=== PATIENT | female | born 1945 | race Caucasian/White ===

== ENCOUNTER 2020-11-26 12:59 | Inpatient (IN) | payer BC, SELFPAY ==
[~2020-11-26] VITALS: Ht 157.5 cm; Wt 62.6 kg
[~2020-11-26 12:59] MED LIST: ALBU8.5H8 INH; AMLO2.5T2 PO; ASPI-1393 PO; ASPI-859 PO; ESCI10TA PO; FLUT1DIS3 IH; FLUT1DIS5 INH; PRED10TA PO; TIOT18CA3; cefdinir PO; proair
--- NOTE | 2020-11-26 12:59 | NUR ---
Placed in room 7. Placed on cardiac cath technician, blood pressure machine and pulse oximeter. To gown for exam. Side rails up. Report given to AMANDA Pang.
[2020-11-26 13:02] VITALS: BP_SYST 153
--- NOTE | 2020-11-26 13:09 | NUR ---
ER Dr. Patrick at bedside examining patient.
--- NOTE | 2020-11-26 13:17 | NUR ---
Faxing over EKG to [facility] per Dr. Patrick EKG reading Acute KS
--- NOTE | 2020-11-26 13:22 | NUR ---
Re-faxing EKG to [facility] did not go through 1st time
--- NOTE | 2020-11-26 13:27 | NUR ---
Dr. Patrick speaking to [facility] Doc regarding pt status.
[2020-11-26] MEDS ORDERED: ASPIRIN 81 MG TAB.CHEW PO ONE (13:45)
[2020-11-26 13:55] LABS: ANION GAP 8 (5-15); CALCIUM 9.3 mg/dL (8.4-11.0); CHLORIDE 105 mmol/L (98-107); CREATININE 0.67 mg/dL (0.55-1.30); GLUCOSE 106 mg/dL (70-99); POTASSIUM 4.2 mmol/L (3.5-5.1); SODIUM SERUM 142 mmol/L (136-145); UREA NITROGEN, BLOOD 10 mg/dL (8-21)
[2020-11-26 14:00] LABS: BASOPHILS % (AUTO) 0.8 % (0.0-2.0); EOSINOPHILS # (AUTO) 0.1 K/uL (0.0-0.4); EOSINOPHILS % (AUTO) 0.9 % (0.0-4.0); HEMATOCRIT 40.2 % (36-48); HEMOGLOBIN 13.2 g/dL (12.0-16.0); LYMPHOCYTES # (AUTO) 1.3 K/uL (1.0-5.5); LYMPHOCYTES % (AUTO) 24.1 % (20.5-51.5); MEAN CORPUSCULAR HEMOGLOBIN 27 pg (27-31); MEAN CORPUSCULAR HGB CONC 33 % (32-36); MEAN CORPUSCULAR VOLUME 83 fL (79.0-98.0); MONOCYTES # (AUTO) 0.7 K/uL (0.0-1.0); MONOCYTES % (AUTO) 12.5 % (1.7-9.3); NEUTROPHILS # (AUTO) 3.3 K/uL (1.8-7.7); NEUTROPHILS % (AUTO) 61.7 % (40.0-70.0); PLATELET COUNT (AUTO) 259 K/uL (130-430); RED BLOOD CELL COUNT(AUTO) 4.87 MIL/uL (4.2-6.2); RED CELL DISTRIBUTION WIDTH 14.2 % (9.0-15.0); WHITE BLOOD COUNT (AUTO) 5.4 K/uL (4.8-10.8)
[2020-11-26] MEDS ORDERED: KETOROLAC TROMETHAMINE 15 MG VIAL IVP ONE (14:00)
[2020-11-26 14:03] LABS: PROTHROMBIN TIME 10.1 SECS (9.5-12.5)
[2020-11-26 14:04] LABS: ALANINE AMINOTRANSFERASE 21 U/L (12-78); ALBUMIN 3.2 g/dL (3.4-4.8); ASPARTATE AMINOTRANSFERASE 19 U/L (10-37); TOTAL BILIRUBIN 0.2 mg/dL (0.0-1.0)
--- NOTE | 2020-11-26 14:48 | NUR ---
Report received from AMANDA Pang for continuation of care.
[2020-11-26] MEDS ORDERED: DIPHENHYDRAMINE INJ 50 MG/ML VIAL IVP ONE (15:00)
[2020-11-26] MEDS ORDERED: MORPHINE 4 MG INJ. 4 MG/ML VIAL IVP ONE (15:00)
--- NOTE | 2020-11-26 15:00 | NUR ---
Medication reconciliation completed with information provided by patient. Any prior medication reconciliation on file was reviewed and corrected.
--- NOTE | 2020-11-26 15:12 | NUR ---
ADMISSION ORDERS RECEIVED FROM DR. CARR
--- NOTE | 2020-11-26 15:13 | NUR ---
Patient will be admitted to care of Dr. Sheridan. Admitted to Telemetry unit. Waiting for room assignment. Belongings list completed. Complete and up to date summary report printed. SBAR report to be given at bedside with opportunity for questions.
--- NOTE | 2020-11-26 15:14 | NUR ---
Called for bed assignment, rim buster not available at this time.
[2020-11-26] MEDS ORDERED: methylPREDNISolone SOD SUCC 40 MG/ML VIAL IVP ONE (15:15)
--- NOTE | 2020-11-26 15:16 | NUR ---
Patient states she can not give urine sample at this time.
[2020-11-26] MEDS ORDERED: methylPREDNISolone SOD SUCC 40 MG/ML VIAL ONE (15:26)
[2020-11-26] MEDS ORDERED: ACETAMINOPHEN 325 MG TABLET PO PRN (15:30)
[2020-11-26] MEDS ORDERED: cloNIDine HCL 0.1 MG TABLET PO PRN (15:30)
[2020-11-26] MEDS ORDERED: FAMOTIDINE 20 MG TABLET PO ONE (15:30)
[2020-11-26] MEDS ORDERED: IPRATROPIUM/ALBUTEROL SULFATE 3 ML AMPUL.NEB (DUONEB) INH PRN (15:30)
--- NOTE | 2020-11-26 16:02 | NUR ---
Transfer to [facility] via [facility] protocol. Licensed nurse present. IV present no signs or symptoms of infiltration.
[2020-11-26 16:24] VITALS: BP_SYST 146
[2020-11-26 16:25] VITALS: BP_SYST 146
[2020-11-26] MEDS: IPRATROPIUM/ALBUTEROL SULFATE 3 ML AMPUL.NEB (DUONEB) INH SCH ×2 (17:58→18:01)
--- NOTE | 2020-11-26 18:31 | NUR ---
Closing note Patient is resting in bed A&Ox4 no complaint of pain or discomfort, no signs or symptoms of respiratory distress. All needs were met, patient is comfortable. Bed is in lowest position, call light within, fall and aspiration precautions are in place. Will endorse report to night shift manager.
--- NOTE | 2020-11-26 19:25 | NUR ---
CHANGE OF SHIFT; endorsed by day shift. new admit for chest pain , DX COPD Exacerbation. no distress. call light within reach.
[2020-11-26 20:00] VITALS: BP_SYST 134
--- NOTE | 2020-11-26 20:00 | NUR ---
NOTES: pt. awake, resting. on room air, denies any shortness of breath, with non productive cough, HOB elevated. 2 IV sites and lock on both arms. on court recording monitor and shows paced and sinus rhythm. noted some bruising on left arm. instructed to use call light when getting out of bed, walker at bedside.
[2020-11-26] MEDS ORDERED: MAGNESIUM SULFATE 50 ML IV ONE (21:30)
[2020-11-26] MEDS ORDERED: ENOXAPARIN SODIUM 40 MG/0.4 ML SYRINGE SUBCUT ONE (21:30)
[2020-11-26] MEDS ORDERED: MELATONIN 3 MG TABLET PO PRN (21:30)
[2020-11-26] MEDS ORDERED: IBUPROFEN 400 MG TABLET PO PRN (21:30)
--- NOTE | 2020-11-26 22:52 | NUR ---
NOTES: medicated with Motrin po for c/o rt. side rib cage due to coughing. pt. able to turn to sides. pt. needs attended.
[2020-11-26] MEDS: methylPREDNISolone SOD SUCC/PF 62.5 MG/ML VIAL IVP SCH ×2 (23:15→23:46)
--- NOTE | 2020-11-27 00:15 | NUR ---
NOTES: noted relief of pain. IV Magnesium infusing.
[2020-11-27 00:34] VITALS: BP_SYST 155
[2020-11-27] MEDS: IPRATROPIUM/ALBUTEROL SULFATE 3 ML AMPUL.NEB (DUONEB) INH SCH ×4 (01:00→19:10)
--- NOTE | 2020-11-27 03:30 | NUR ---
NOTES: condition observed, continue to monitor.
--- NOTE | 2020-11-27 05:00 | NUR ---
NOTES: pt. woke up and stand by assist, ambulated to the restroom with walker. pt. asked for breathing treatment. called RT.
[2020-11-27] MEDS: methylPREDNISolone SOD SUCC/PF 62.5 MG/ML VIAL IVP SCH ×3 (06:00→22:33)
[2020-11-27 06:29] LABS: BASOPHILS % (AUTO) 0.2 % (0.0-2.0); HEMATOCRIT 42.5 % (36-48); HEMOGLOBIN 14.2 g/dL (12.0-16.0); LYMPHOCYTES # (AUTO) 0.6 K/uL (1.0-5.5); LYMPHOCYTES % (AUTO) 14.4 % (20.5-51.5); MEAN CORPUSCULAR HEMOGLOBIN 28 pg (27-31); MEAN CORPUSCULAR HGB CONC 33 % (32-36); MEAN CORPUSCULAR VOLUME 83 fL (79.0-98.0); MONOCYTES % (AUTO) 1.1 % (1.7-9.3); NEUTROPHILS # (AUTO) 3.4 K/uL (1.8-7.7); NEUTROPHILS % (AUTO) 84.3 % (40.0-70.0); PLATELET COUNT (AUTO) 277 K/uL (130-430); RED BLOOD CELL COUNT(AUTO) 5.12 MIL/uL (4.2-6.2); RED CELL DISTRIBUTION WIDTH 14.3 % (9.0-15.0)
--- NOTE | 2020-11-27 06:41 | NUR ---
CLOSING NOTES; pt. already awake, resting, had a cup of coffee. IV sites patent. breathing treatment by RT earlier. needs attended. for further care and assistance. will endorse to incoming shift. call light within reach.
[2020-11-27 06:50] LABS: ALANINE AMINOTRANSFERASE 19 U/L (12-78); ALBUMIN 3.4 g/dL (3.4-4.8); ANION GAP 8 (5-15); ASPARTATE AMINOTRANSFERASE 20 U/L (10-37); CALCIUM 9.2 mg/dL (8.4-11.0); CHLORIDE 104 mmol/L (98-107); CREATININE 0.84 mg/dL (0.55-1.30); GLUCOSE 154 mg/dL (70-99); POTASSIUM 4.7 mmol/L (3.5-5.1); SODIUM SERUM 141 mmol/L (136-145); TOTAL BILIRUBIN 0.2 mg/dL (0.0-1.0); UREA NITROGEN, BLOOD 14 mg/dL (8-21)
--- NOTE | 2020-11-27 07:30 | NUR ---
OPENING NOTES PATIENT AAOX 4. VITALS SIGNS STABLE. AFEBRILE. RESPIRATION EVEN AND UNLABORED. LUNGS BILATERALLY WITH SLIGHT WHEEZES. NOTED. HAS IV ACCESS ON THE LEFT FOREARM #18. SALINE LOCK AND ONE ON THE RT FOREARM #20 SALINE LOCK NOTED. PATENT/DRY. BED LOW POSITION, ALARMED AND LOCKED. CALL LIGHTS WITHIN REACH. WILL CONTINUE TO MONITOR PATIENTS STATUS.
[2020-11-27 07:45] VITALS: BP_SYST 125
[2020-11-27] MEDS: FAMOTIDINE 20 MG TABLET PO SCH (08:42)
[2020-11-27] MEDS: CITALOPRAM HYDROBROMIDE 20 MG TABLET PO SCH (08:42)
[2020-11-27] MEDS: ASPIRIN 81 MG TABLET(ECOTRIN) PO SCH (08:42)
[2020-11-27] MEDS: amLODIPine BESYLATE 5 MG TABLET PO SCH (08:43)
--- NOTE | 2020-11-27 09:00 | NUR ---
PATIENT CAME FROM ER VIA [employer] ALERT AWAKE X 3-4. SPEAKS WELSH. SISTER AT THE BEDSIDE. RESPIRATION IS EVEN BUT DYSPNEA ON EXERTION. VITALS SIGNS STABLE. AFEBRILE AND DOCUMENTED. HAS OXYGEN OF 10 LITERS VIA VENTI MASK OR FACE MASK. O2 SAT AT 98%. HAS IV ACCESS ON THE RT FOREARM #20. SALINE LOCK. BED LOW POSITION, ALARMED AND LOCKED. NO SKIN BREAKDOWN NOTED. Addendum: 11/27/20 at 1214 by Cristina Chan RN NOT FOR THIS PATIENT.
--- NOTE | 2020-11-27 09:30 | NUR ---
ADMISSION ASSESSMENT DONE AT THIS TIME. CONTINUE TO MONITOR PATIENTS STATUS. Addendum: 11/27/20 at 1214 by Cristina Chan RN NOT FOR THIS PATIENT.
[2020-11-27 11:39] VITALS: BP_SYST 135
[2020-11-27] MEDS ORDERED: DEXTROSE 50%-WATER 50 ML DISP.SYRIN IVP PRN (12:15)
[2020-11-27] MEDS ORDERED: GLUCOSE (DEXTROSE) ORAL GEL -Adults PO PRN (12:15)
[2020-11-27] MEDS ORDERED: D5W 1,000 ML IV PRN (12:15)
--- NOTE | 2020-11-27 12:15 | NUR ---
DR CARR CAME AND EVALAUTE THE PATIENT. MADE ORDERS.
[2020-11-27] MEDS ORDERED: BUDESONIDE 0.5 MG/2 ML AMPUL.NEB INH ONE (13:00)
[2020-11-27] MEDS: BENZONATATE 100 MG CAPSULE (TESSALON) PO SCH ×3 (14:56→22:31)
[2020-11-27] MEDS: cefTRIAXone 1 GM in D5W 50 ML IV SCH (14:56)
[2020-11-27] MEDS: AZITHROMYCIN 500 MG in NS 250 ML IV SCH (14:56)
[2020-11-27] MEDS: traMADol HCL HCL 50 MG TABLET (ULTRAM) PO PRN (14:58)
[2020-11-27 15:28] VITALS: BP_SYST 118
[2020-11-27] MEDS: INSULIN LISPRO SLIDING SCALE 100 UNITS/ML VIAL (humaLOG) SUBCUT PRN (17:02)
--- NOTE | 2020-11-27 17:20 | NUR ---
P.T. NOTES P.T. EVAL COMPLETED; REFER TO EVAL FOR DETAILS; O2 SAT ROOM AIR W/ EXERTION=91%
--- NOTE | 2020-11-27 19:35 | NUR ---
initial notes: pt is in bed, alert, awake, oriented x 4. complain of mild right rib pain, no sob, not distress, room air. vital sign stable. ambulatory with steady gait using ffw. explain plan of care and safety. pt verbalized understanding.needs attended, call light in reach, low bed position, side rails up x 2. will monitor.
[2020-11-27] MEDS: BUDESONIDE 0.5 MG/2 ML AMPUL.NEB INH SCH (20:00)
[2020-11-27 20:42] VITALS: BP_SYST 119
--- NOTE | 2020-11-28 | NUR ---
sleeping, comfortable. no sob, not distress, stable vital sign. call light with the pt. safety precaution place. will monitor.
[2020-11-28 01:44] VITALS: BP_SYST 154
[2020-11-28] MEDS: IPRATROPIUM/ALBUTEROL SULFATE 3 ML AMPUL.NEB (DUONEB) INH SCH ×3 (01:46→13:47)
--- NOTE | 2020-11-28 03:30 | NUR ---
sleeping, no sob, not distress, no pain, stable, call light with the . will continue to monitor.
[2020-11-28] MEDS: methylPREDNISolone SOD SUCC/PF 62.5 MG/ML VIAL IVP SCH ×3 (06:00→21:30)
--- NOTE | 2020-11-28 06:28 | NUR ---
closing: pt is awake, alert. no pain, not distress, stable the whole shift. ambulatory using fww, needs attended the whole shift, call light with the pt. will give sbar reporting to am rn.
[2020-11-28 07:20] LABS: HEMATOCRIT 39.2 % (36-48); LYMPHOCYTES # (AUTO) 0.5 K/uL (1.0-5.5); LYMPHOCYTES % (AUTO) 5.1 % (20.5-51.5); MEAN CORPUSCULAR HEMOGLOBIN 28 pg (27-31); MEAN CORPUSCULAR HGB CONC 33 % (32-36); MEAN CORPUSCULAR VOLUME 83 fL (79.0-98.0); MONOCYTES # (AUTO) 0.3 K/uL (0.0-1.0); MONOCYTES % (AUTO) 2.8 % (1.7-9.3); NEUTROPHILS # (AUTO) 9.6 K/uL (1.8-7.7); NEUTROPHILS % (AUTO) 92.1 % (40.0-70.0); PLATELET COUNT (AUTO) 255 K/uL (130-430); RED BLOOD CELL COUNT(AUTO) 4.74 MIL/uL (4.2-6.2); RED CELL DISTRIBUTION WIDTH 14.2 % (9.0-15.0); WHITE BLOOD COUNT (AUTO) 10.4 K/uL (4.8-10.8)
[2020-11-28 07:30] LABS: ANION GAP 7 (5-15); CALCIUM 8.7 mg/dL (8.4-11.0); CHLORIDE 105 mmol/L (98-107); CREATININE 0.61 mg/dL (0.55-1.30); GLUCOSE 155 mg/dL (70-99); POTASSIUM 4.4 mmol/L (3.5-5.1); SODIUM SERUM 142 mmol/L (136-145); UREA NITROGEN, BLOOD 16 mg/dL (8-21)
--- NOTE | 2020-11-28 07:45 | NUR ---
Opening Notes Patient is awake, alert and oriented x4. No resp distress noted. Breathing is even and unlabored. Pt reports productive cough, phlegm is white in color, thick. Breathing treatments as needed. Pt denies any pain at this time. IV site on left FA, 18 gauge intact at this time, saline lock. Dressing clean and dry. Pt is ambulatory, steady gait. Pt denies any SOB during ambulation. 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 Pt denies any NVD or abnormal bleeding at this time. All needs met. Safety and fall precautions in place. Bed in lowest position, locked. Will continue to monitor.
[2020-11-28 08:00] VITALS: BP_SYST 140
[2020-11-28] MEDS: CITALOPRAM HYDROBROMIDE 20 MG TABLET PO SCH (08:36)
[2020-11-28] MEDS: BENZONATATE 100 MG CAPSULE (TESSALON) PO SCH ×3 (08:36→21:30)
[2020-11-28] MEDS: ASPIRIN 81 MG TABLET(ECOTRIN) PO SCH (08:36)
[2020-11-28] MEDS: FAMOTIDINE 20 MG TABLET PO SCH (08:37)
[2020-11-28] MEDS: amLODIPine BESYLATE 5 MG TABLET PO SCH (08:37)
[2020-11-28] MEDS: BUDESONIDE 0.5 MG/2 ML AMPUL.NEB INH SCH ×2 (09:00→20:39)
--- NOTE | 2020-11-28 10:31 | NUR ---
Patient is being seen and examined by DR CARR
[2020-11-28] MEDS: traMADol HCL HCL 50 MG TABLET (ULTRAM) PO PRN ×2 (10:44→23:58)
[2020-11-28] MEDS: INSULIN LISPRO SLIDING SCALE 100 UNITS/ML VIAL (humaLOG) SUBCUT PRN (11:21)
[2020-11-28 11:40] VITALS: BP_SYST 124
[2020-11-28] MEDS ORDERED: IBUPROFEN 400 MG TABLET PO PRN (12:00)
[2020-11-28] MEDS: cefTRIAXone 1 GM in D5W 50 ML IV SCH (12:09)
[2020-11-28] MEDS: AZITHROMYCIN 500 MG in NS 250 ML IV SCH (13:39)
--- NOTE | 2020-11-28 15:13 | NUR ---
Patient is being seen and examined by DR PRINCE
[2020-11-28] MEDS ORDERED: LIDOCAINE PATCH 5% 1 EA TP ONE (15:15)
[2020-11-28 15:50] VITALS: BP_SYST 135
--- NOTE | 2020-11-28 16:00 | NUR ---
12 lead EKG by bedside. SINUS RHYTHM noted. Faxed results to Dr. Sheridan's office.
--- NOTE | 2020-11-28 16:26 | NUR ---
CONSULTATION: REASON FOR CONSULT: NEW ONSET OF ATRIAL FIBRILLATION CONSULTING PHYSICIAN: YVONNE ORDERED BY: BRUNO SPOKE WITH LIZA [phone]
--- NOTE | 2020-11-28 16:40 | NUR ---
Nurse applied Lidocaine Patch 5% to patients right side of abdomen lateral region, tolerating well. Pt was instructed that patch will be removed after 8 hours of application. Pt aware and agreed. Will endorse to next nurse.
--- NOTE | 2020-11-28 18:44 | NUR ---
Closing Notes Patient is awake, alert and oriented x4. No resp distress noted. Breathing is even and unlabored at this time. Pt is still noted with a cough. Pt reports relief of pain on right side of abdomen laterally, where lidocaine patch is applied. Pt denies any pain at this time. IV site on left FA, 18 gauge intact at this time. Pt is ambulatory, steady gait. All needs met at this time. Safety and fall precautions in place. Bed in lowest position, alarm on, locked. Will continue to monitor.
--- NOTE | 2020-11-28 19:25 | NUR ---
initial notes: pt is in bed, alert, awake, oriented x 4. no pain, no sob, not distress, room air. vital sign stable. ambulatory with steady gait using ffw. explain plan of care and safety. pt verbalized understanding.needs attended, call light in reach, low bed position, side rails up x 2. will monitor.
[2020-11-28 19:57] VITALS: BP_SYST 128
--- NOTE | 2020-11-28 20:30 | NUR ---
pt came out form room, sob and wheezing. ask for breathing treatment. back to bed, steady gait. o2 sating 92% at room air. RT came in and administer btx. stable. call light with the pt.
[2020-11-28] MEDS: IPRATROPIUM BROM 0.5 MG/2.5 ML VIAL.NEB (ATROVENT) INH PRN (20:35)
[2020-11-28] MEDS: levalbuterol HCL 0.63 MG/3 ML VIAL.NEB INH PRN (20:36)
[2020-11-28] MEDS: BACLOFEN 10 MG TABLET PO SCH (21:00)
[2020-11-28] MEDS: ACETAMINOPHEN 500 MG TABLET PO SCH (21:30)
--- NOTE | 2020-11-29 | NUR ---
pt wakes up and ask for pain medication for moderate right rib pain, stable no distress. needs attended call light in reach. will monitor.
[2020-11-29 00:19] VITALS: BP_SYST 124
--- NOTE | 2020-11-29 03:00 | NUR ---
pt is awake, alert, watching tv. no pain, stable, urostomy bag- drain.needs attended. call light in reach. Addendum: 11/29/20 at 0631 by Brennen Pablo RN disregard wrong entry.
--- NOTE | 2020-11-29 03:00 | NUR ---
sleeping, no sob, not distress, no pain, stable, call light with the pt.
[2020-11-29] MEDS: methylPREDNISolone SOD SUCC/PF 62.5 MG/ML VIAL IVP SCH ×2 (06:19→13:43)
--- NOTE | 2020-11-29 06:31 | NUR ---
closing: pt is awake, alert. watching tv and drinking her coffee. no pain, not distress, stable the whole shift. ambulatory using fww, needs attended the whole shift, call light with the pt. will give sbar reporting to am rn.
[2020-11-29 06:53] LABS: ANION GAP 10 (5-15); CALCIUM 8.4 mg/dL (8.4-11.0); CHLORIDE 102 mmol/L (98-107); CREATININE 0.66 mg/dL (0.55-1.30); GLUCOSE 154 mg/dL (70-99); SODIUM SERUM 140 mmol/L (136-145); UREA NITROGEN, BLOOD 15 mg/dL (8-21)
[2020-11-29] MEDS: FAMOTIDINE 20 MG TABLET PO SCH (07:59)
[2020-11-29] MEDS: CITALOPRAM HYDROBROMIDE 20 MG TABLET PO SCH (07:59)
[2020-11-29] MEDS: ACETAMINOPHEN 500 MG TABLET PO SCH ×2 (07:59→20:41)
[2020-11-29] MEDS: ASPIRIN 81 MG TABLET(ECOTRIN) PO SCH (07:59)
[2020-11-29 08:00] VITALS: BP_SYST 138
[2020-11-29] MEDS: amLODIPine BESYLATE 5 MG TABLET PO SCH (08:00)
[2020-11-29] MEDS: LIDOCAINE PATCH 5% 1 EA TP SCH (08:00)
--- NOTE | 2020-11-29 08:00 | NUR ---
A/Ox4. Pt is anxious. On room air, saturation at 92-95%. Reassurance and explanation of POC and meds are provided. V/S stable. All needs met at this time. Safety and fall precautions in place. Bed in lowest position, alarm on, locked. Will continue to monitor.
[2020-11-29] MEDS: BUDESONIDE 0.5 MG/2 ML AMPUL.NEB INH SCH ×2 (08:24→20:00)
[2020-11-29] MEDS: BACLOFEN 10 MG TABLET PO SCH ×2 (09:00→20:39)
[2020-11-29] MEDS: BENZONATATE 100 MG CAPSULE (TESSALON) PO SCH ×3 (09:00→20:39)
--- NOTE | 2020-11-29 10:21 | NUR ---
PATIENT REFUSED P.T. AT THIS TIME, STATES BEEN HAVING A BAD MORNING AND HAS BEEN VOMITING, ASKED IF SHE NEEDED ME TO INFORM NURSING, STATES THAT THEY ARE AWARE.
--- NOTE | 2020-11-29 11:11 | NUR ---
Patient is seen walking to the bathroom. O2 sat at 89-91%. No distress noted. BS 151.
[2020-11-29 12:00] VITALS: BP_SYST 128
[2020-11-29] MEDS: cefTRIAXone 1 GM in D5W 50 ML IV SCH (12:53)
[2020-11-29] MEDS: AZITHROMYCIN 500 MG in NS 250 ML IV SCH (13:43)
--- NOTE | 2020-11-29 14:00 | NUR ---
patient is seen walking around from bathroom and back on her own power. No distress noted.
[2020-11-29] MEDS: IPRATROPIUM BROM 0.5 MG/2.5 ML VIAL.NEB (ATROVENT) INH PRN (14:14)
[2020-11-29] MEDS: levalbuterol HCL 0.63 MG/3 ML VIAL.NEB INH PRN (14:15)
[2020-11-29 14:22] VITALS: BP_SYST 128
[2020-11-29] MEDS ORDERED: ALBUTEROL SULFATE 0.083% 2.5 MG/3 ML VIAL.NEB INH PRN (16:15)
[2020-11-29] MEDS ORDERED: IPRATROPIUM/ALBUTEROL SULFATE 3 ML AMPUL.NEB (DUONEB) INH ONE (16:15)
[2020-11-29] MEDS ORDERED: ALBUTEROL SULFATE 0.083% 2.5 MG/3 ML VIAL.NEB INH ONE (16:15)
[2020-11-29 16:25] VITALS: BP_SYST 127
--- NOTE | 2020-11-29 16:30 | NUR ---
patient's blood sugar at 198. Coverage will be provided before meal.
[2020-11-29] MEDS: INSULIN LISPRO SLIDING SCALE 100 UNITS/ML VIAL (humaLOG) SUBCUT PRN ×2 (17:36→20:54)
[2020-11-29] MEDS: IPRATROPIUM/ALBUTEROL SULFATE 3 ML AMPUL.NEB (DUONEB) INH PRN (19:01)
--- NOTE | 2020-11-29 19:25 | NUR ---
CHANGE OF SHIFT; endorsed by day shift, went into the room, pt. awake, HOB elevated, still gets short of breath on exertion but no distress. reminded pt. to use call light for help.
[2020-11-29 20:00] VITALS: BP_SYST 129
--- NOTE | 2020-11-29 20:45 | NUR ---
NOTES:' pt. resting in bed awake. on room air, still gets short of breath on exertion. ambulates to the restroom with walker. IV lock on left arm. on equipment monitor phototypesetting and shows sinus rhythm. VS checked. call light at bedside.
[2020-11-29] MEDS ORDERED: MAG-AL HYDROX/SIMETH 30 ML UDC PO PRN (21:15)
--- NOTE | 2020-11-29 22:30 | NUR ---
NOTES: pt. starts dozing on and off. repositioned self for comfort.
[2020-11-30 00:45] VITALS: BP_SYST 146
--- NOTE | 2020-11-30 01:30 | NUR ---
NOTE; made rounds, sleeping. condition observed. call light at bedside.
--- NOTE | 2020-11-30 04:30 | NUR ---
NOTES; pt. been sleeping. no distress. cardiac pattern unchnaged. continue to monitor.
[2020-11-30] MEDS: ACETAMINOPHEN 500 MG TABLET PO SCH ×2 (06:12→21:09)
--- NOTE | 2020-11-30 06:24 | NUR ---
CLOSING NOTES; pt. ambulated to the restroom with walker but gets short of breath easily, blount RT per pt. request for breathing treatment. medicated with Tylenol EX po given and early schedule. IV site patent. for further care and assistance. call light within reach. will endorse to incoming shift.
[2020-11-30] MEDS: IPRATROPIUM/ALBUTEROL SULFATE 3 ML AMPUL.NEB (DUONEB) INH PRN ×2 (06:39→14:09)
[2020-11-30 08:13] VITALS: BP_SYST 112
[2020-11-30] MEDS: CITALOPRAM HYDROBROMIDE 20 MG TABLET PO SCH (08:18)
[2020-11-30] MEDS: BACLOFEN 10 MG TABLET PO SCH ×2 (08:19→21:09)
[2020-11-30] MEDS: ASPIRIN 81 MG TABLET(ECOTRIN) PO SCH (08:19)
[2020-11-30] MEDS: FAMOTIDINE 20 MG TABLET PO SCH (08:19)
[2020-11-30] MEDS: BENZONATATE 100 MG CAPSULE (TESSALON) PO SCH ×3 (08:20→21:08)
[2020-11-30] MEDS: LIDOCAINE PATCH 5% 1 EA TP SCH (08:20)
[2020-11-30] MEDS ORDERED: methylPREDNISolone SOD SUCC/PF 62.5 MG/ML VIAL IVP SCH (09:00)
[2020-11-30] MEDS: BUDESONIDE 0.5 MG/2 ML AMPUL.NEB INH SCH ×2 (09:00→20:00)
--- NOTE | 2020-11-30 09:00 | NUR ---
Respiratory/mobility Ambulate to room to hallway 60 feet using FWW with sob oxygen saturation post ambulation 93% documented and Dr. Sheridan informed.
[2020-11-30] MEDS ORDERED: ALPRAZolam 0.25 MG TABLET PO PRN (09:30)
[2020-11-30] MEDS: amLODIPine BESYLATE 5 MG TABLET PO SCH (10:41)
[2020-11-30] MEDS: cefTRIAXone 1 GM in D5W 50 ML IV SCH (11:00)
[2020-11-30 11:33] VITALS: BP_SYST 138
[2020-11-30] MEDS: AZITHROMYCIN 500 MG in NS 250 ML IV SCH (12:15)
[2020-11-30] MEDS: methylPREDNISolone SOD SUCC/PF 62.5 MG/ML VIAL IVP SCH ×2 (14:06→21:07)
[2020-11-30 15:52] VITALS: BP_SYST 143
--- NOTE | 2020-11-30 18:19 | NUR ---
Patient verbalized feeling better wheezing is less, ambulate using FWW mild SOB oxygen saturation 93% on room air.
[2020-11-30 20:00] VITALS: BP_SYST 133
[2020-11-30] MEDS: INSULIN LISPRO SLIDING SCALE 100 UNITS/ML VIAL (humaLOG) SUBCUT PRN (21:21)
--- NOTE | 2020-11-30 22:00 | NUR ---
ROUNDING NOTES Patient resting in bed - no s/s pain or distress noted. Respirations even and unlabored - head of bed elevated. Skin warm and dry, no s/s hypoglycemia. IV site patent - no s/s redness, infection, or infiltration. Bed locked and in lowest position. Call light within reach.
[2020-12-01] VITALS: BP_SYST 142
[2020-12-01] MEDS: methylPREDNISolone SOD SUCC/PF 62.5 MG/ML VIAL IVP SCH ×3 (06:15→21:49)
[2020-12-01 06:39] LABS: BASOPHILS % (AUTO) 0.3 % (0.0-2.0); EOSINOPHILS % (AUTO) 0.6 % (0.0-4.0); HEMATOCRIT 40.5 % (36-48); HEMOGLOBIN 13.6 g/dL (12.0-16.0); LYMPHOCYTES # (AUTO) 0.4 K/uL (1.0-5.5); LYMPHOCYTES % (AUTO) 5.6 % (20.5-51.5); MEAN CORPUSCULAR HEMOGLOBIN 28 pg (27-31); MEAN CORPUSCULAR HGB CONC 34 % (32-36); MEAN CORPUSCULAR VOLUME 82 fL (79.0-98.0); MONOCYTES # (AUTO) 0.4 K/uL (0.0-1.0); MONOCYTES % (AUTO) 5.3 % (1.7-9.3); NEUTROPHILS # (AUTO) 6.4 K/uL (1.8-7.7); NEUTROPHILS % (AUTO) 88.2 % (40.0-70.0); PLATELET COUNT (AUTO) 316 K/uL (130-430); RED BLOOD CELL COUNT(AUTO) 4.93 MIL/uL (4.2-6.2); RED CELL DISTRIBUTION WIDTH 14.3 % (9.0-15.0); WHITE BLOOD COUNT (AUTO) 7.3 K/uL (4.8-10.8)
[2020-12-01 06:50] LABS: ANION GAP 8 (5-15); CALCIUM 8.6 mg/dL (8.4-11.0); CHLORIDE 103 mmol/L (98-107); CREATININE 0.72 mg/dL (0.55-1.30); GLUCOSE 174 mg/dL (70-99); POTASSIUM 4.1 mmol/L (3.5-5.1); SODIUM SERUM 140 mmol/L (136-145); UREA NITROGEN, BLOOD 18 mg/dL (8-21)
--- NOTE | 2020-12-01 07:45 | NUR ---
AM ROUNDS: RECEIVED REPORT FROM NIGHT NURSE CARLOS. PATIENT WAS SLEEPING THEN WOKE UP DURING ROUNDS.PATIENT WENT BACK TO SLEEP.CALL LIGHT WITH IN REACH. BED LOCKED AT LOWEST POSITION. NO NEEDS THIS TIME.
[2020-12-01 08:14] VITALS: BP_SYST 148
[2020-12-01] MEDS: ASPIRIN 81 MG TABLET(ECOTRIN) PO SCH (08:36)
[2020-12-01] MEDS: FAMOTIDINE 20 MG TABLET PO SCH (08:36)
[2020-12-01] MEDS: CITALOPRAM HYDROBROMIDE 20 MG TABLET PO SCH (08:36)
[2020-12-01] MEDS: BENZONATATE 100 MG CAPSULE (TESSALON) PO SCH ×3 (08:37→21:43)
[2020-12-01] MEDS: amLODIPine BESYLATE 5 MG TABLET PO SCH (08:37)
[2020-12-01] MEDS: LIDOCAINE PATCH 5% 1 EA TP SCH (08:38)
[2020-12-01] MEDS: BACLOFEN 10 MG TABLET PO SCH ×2 (08:38→21:43)
[2020-12-01] MEDS: ACETAMINOPHEN 500 MG TABLET PO SCH (08:40)
[2020-12-01] MEDS: IPRATROPIUM/ALBUTEROL SULFATE 3 ML AMPUL.NEB (DUONEB) INH PRN ×3 (09:26→19:52)
[2020-12-01] MEDS: BUDESONIDE 0.5 MG/2 ML AMPUL.NEB INH SCH ×2 (09:26→20:10)
[2020-12-01] MEDS: INSULIN LISPRO SLIDING SCALE 100 UNITS/ML VIAL (humaLOG) SUBCUT PRN ×2 (11:21→21:46)
[2020-12-01] MEDS: AZITHROMYCIN 500 MG in NS 250 ML IV SCH (12:17)
[2020-12-01] MEDS: cefTRIAXone 1 GM in D5W 50 ML IV SCH (12:17)
[2020-12-01 12:34] VITALS: BP_SYST 129
[2020-12-01] MEDS: ONDANSETRON HCL 4 MG/2 ML VIAL IVP PRN (12:49)
--- NOTE | 2020-12-01 13:30 | NUR ---
Patient requested to hold Physical Therapy treatment due to having nausea. Plan: Attempt tomorrow.
[2020-12-01] MEDS ORDERED: METOCLOPRAMIDE HCL 10 MG/2 ML VIAL IVP PRN (14:30)
[2020-12-01] MEDS ORDERED: traMADol HCL HCL 50 MG TABLET (ULTRAM) PO PRN (14:43)
[2020-12-01] MEDS ORDERED: ACETAMINOPHEN 500 MG TABLET PO PRN (14:45)
[2020-12-01] MEDS ORDERED: IBUPROFEN 600 MG TABLET PO PRN (14:45)
[2020-12-01] MEDS ORDERED: guaiFENesin ER 600 MG TAB PO ONE (14:45)
[2020-12-01] MEDS ORDERED: PANTOPRAZOLE SODIUM 40 MG/VIAL (PROTONIX) IVP ONE (14:45)
[2020-12-01 14:50] LABS: ALANINE AMINOTRANSFERASE 21 U/L (12-78); AMYLASE 22 U/L (0-100); ASPARTATE AMINOTRANSFERASE 18 U/L (10-37); LIPASE 57 U/L (73-393); TOTAL BILIRUBIN 0.4 mg/dL (0.0-1.0)
[2020-12-01 14:51] LABS: BILIRUBIN,DIRECT < 0.1 mg/dL (0.0-0.3)
--- NOTE | 2020-12-01 14:51 | NUR ---
DC TELE: DOWNGRADE PATIENT TO MEDICAL SURGICAL PER DR CARR. PT NAUSEOUS, AWARE,WITH NEW ORDERS MADE. FOR ABDOMINAL ULTRASOUND,PT CAN HAVE CLEAR LIQUID ORDERED.INSTRUCTED PATIENT NO FOOD THIS TIME UNTIL ULTRASOUND IS DONE.
[2020-12-01 16:32] VITALS: BP_SYST 121
--- NOTE | 2020-12-01 18:13 | NUR ---
Hold Dinner: For abdominal ultrasound ,keep npo at least 8 hours per policy.Patient understands instructions given.
--- NOTE | 2020-12-01 18:22 | NUR ---
End of Shift: Waiting for abdominal ultrasound test. Maintained nothing by mouth. Call light with in reach. Bed locked at lowest position. No acute distress.
[2020-12-01 20:00] VITALS: BP_SYST 128
--- NOTE | 2020-12-01 21:42 | NUR ---
ASSIST Patient out of bed ambulates to Rest Room FALL MEASURES implemented no SOB activity tolerated .
[2020-12-01] MEDS: guaiFENesin ER 600 MG TAB PO SCH (21:43)
--- NOTE | 2020-12-02 | NUR ---
MYLANTA 30 ML PO given for GI upset as ordered & per PATIENT REQUEST .
[2020-12-02] MEDS: ONDANSETRON HCL 4 MG/2 ML VIAL IVP PRN (00:41)
--- NOTE | 2020-12-02 00:41 | NUR ---
ZOFRAN 4 MG IVP GIVEN FOR GI UPSET / monitor .
[2020-12-02 01:22] VITALS: BP_SYST 135
--- NOTE | 2020-12-02 04:41 | NUR ---
HOURLY ROUNDING FALL RISK , FREQUENT VISUAL MONITOR , assist as needed to Rest Room , back to bed no SOB noted activity tolerate / .
[2020-12-02] MEDS: methylPREDNISolone SOD SUCC/PF 62.5 MG/ML VIAL IVP SCH ×2 (05:43→14:00)
[2020-12-02] MEDS: INSULIN LISPRO SLIDING SCALE 100 UNITS/ML VIAL (humaLOG) SUBCUT PRN (05:45)
[2020-12-02] MEDS: IPRATROPIUM/ALBUTEROL SULFATE 3 ML AMPUL.NEB (DUONEB) INH PRN ×2 (06:23→13:32)
--- NOTE | 2020-12-02 07:40 | NUR ---
CONSULT GI PERSISTENT N/V DR FERRER, DR ROSA OCCUPATIONAL SAFETY AND HEALTH MANAGER S/W MAT EXCHANGE
[2020-12-02 07:45] LABS: ALANINE AMINOTRANSFERASE 20 U/L (12-78); ANION GAP 10 (5-15); ASPARTATE AMINOTRANSFERASE 15 U/L (10-37); CALCIUM 8.2 mg/dL (8.4-11.0); CHLORIDE 102 mmol/L (98-107); CREATININE 0.65 mg/dL (0.55-1.30); GLUCOSE 183 mg/dL (70-99); LIPASE 48 U/L (73-393); POTASSIUM 3.5 mmol/L (3.5-5.1); SODIUM SERUM 139 mmol/L (136-145); TOTAL BILIRUBIN 0.6 mg/dL (0.0-1.0); UREA NITROGEN, BLOOD 21 mg/dL (8-21)
[2020-12-02 08:00] VITALS: BP_SYST 120
--- NOTE | 2020-12-02 08:00 | NUR ---
Initial note: Patient is resting on bed, A/AOx4, states feeling weak, couldn't sleep well last night. She doesn't feel nauseous but doesn't want to eat breakfast.
[2020-12-02] MEDS ORDERED: PANTOPRAZOLE SODIUM 40 MG/VIAL (PROTONIX) IVP SCH (09:00)
[2020-12-02] MEDS: BUDESONIDE 0.5 MG/2 ML AMPUL.NEB INH SCH (09:00)
[2020-12-02] MEDS: LIDOCAINE PATCH 5% 1 EA TP SCH (09:09)
[2020-12-02] MEDS: ASPIRIN 81 MG TABLET(ECOTRIN) PO SCH (09:09)
[2020-12-02] MEDS: amLODIPine BESYLATE 5 MG TABLET PO SCH (09:10)
[2020-12-02] MEDS: BENZONATATE 100 MG CAPSULE (TESSALON) PO SCH ×2 (09:11→15:04)
[2020-12-02] MEDS: CITALOPRAM HYDROBROMIDE 20 MG TABLET PO SCH (09:12)
[2020-12-02] MEDS: FAMOTIDINE 20 MG TABLET PO SCH (09:12)
[2020-12-02] MEDS: guaiFENesin ER 600 MG TAB PO SCH (09:12)
[2020-12-02] MEDS: BACLOFEN 10 MG TABLET PO SCH (09:12)
--- NOTE | 2020-12-02 10:00 | NUR ---
GI round: Dr. Jeffery makes round for GI consult with no new order. Patient stated feeling better after a cup of hot tea and honey+lemon juice.
[2020-12-02 12:13] VITALS: BP_SYST 123
[2020-12-02] MEDS: cefTRIAXone 1 GM in D5W 50 ML IV SCH (12:52)
--- NOTE | 2020-12-02 13:29 | NUR ---
DC ordered: Dr. Sheridan makes round . Patient states feeling much better than last night. Dr. Sheridan has ordered to DC home with prescription.
--- NOTE | 2020-12-02 14:03 | NUR ---
Diet education RD provided diet education on the topics of Carbohydrate Counting and Heart failure MNT. Handout from [employer] were reviewed. RD also provided contact information for future diet related questions. Interdisciplinary Teaching Record note was saved for the wrong pt. please disregard. RUBENS, MARJ
--- NOTE | 2020-12-02 14:32 | NUR ---
Dietitian Recommendations *Recommend: Add CCHO to Na 2gm diet. Please see nutritional assessment for details MARJ ART
[2020-12-02] MEDS ORDERED: PRED20TA PO (14:40)
[2020-12-02] MEDS ORDERED: PRO40 PO (14:40)
[2020-12-02] MEDS ORDERED: LIDOCAIN TP (14:42)
[2020-12-02 14:47] VITALS: BP_SYST 121
--- NOTE | 2020-12-02 15:31 | NUR ---
D/C Patient Patient given medication reconciliation form and D/C instruction. Patient verbalized understanding. MD discussed with patient the results and treatment provided. Ambulatory with steady gait for discharge to home. Patient in stable condition, ID band removed. IV catheter removed, intact and dressing applied, no active bleeding. Rx of given. Patient educated on pain management. All belongings sent with patient.
== END 2020-12-02 15:25 | disposition home or self-care (01) | DRG 189 ==
LOC: SED 12:59 → STU 15:13 → SMU 12-01 23:25
PROVIDERS: ADMIT Internal Medicine; ATTEND Internal Medicine
DX: J96.21 Acute and chronic respiratory failure with hypoxia (principal); J44.1 Chronic obstructive pulmonary disease with (acute) exacerbation; F19.20 Other psychoactive substance dependence, uncomplicated; I42.9 Cardiomyopathy, unspecified; I25.10 Atherosclerotic heart disease of native coronary artery without angina pectoris; F32.9 Major depressive disorder, single episode, unspecified; I48.91 Unspecified atrial fibrillation; Z20.822 Contact with and (suspected) exposure to COVID-19; F17.200 Nicotine dependence, unspecified, uncomplicated; I11.0 Hypertensive heart disease with heart failure; I50.9 Heart failure, unspecified; J84.10 Pulmonary fibrosis, unspecified; T38.0X5A Adverse effect of glucocorticoids and synthetic analogues, initial encounter; E11.9 Type 2 diabetes mellitus without complications; Z88.5 Allergy status to narcotic agent; Z79.899 Other long term (current) drug therapy; Z95.0 Presence of cardiac pacemaker; Z90.710 Acquired absence of both cervix and uterus; Z88.8 Allergy status to other drugs, medicaments and biological substances; Y92.89 Other specified places as the place of occurrence of the external cause; Z79.52 Long term (current) use of systemic steroids; Z79.82 Long term (current) use of aspirin; Z80.42 Family history of malignant neoplasm of prostate; Z82.49 Family history of ischemic heart disease and other diseases of the circulatory system; Z85.41 Personal history of malignant neoplasm of cervix uteri; Z85.42 Personal history of malignant neoplasm of other parts of uterus
CPT/HCPCS: 36415; 71045; 71100; 71250-TC; 72072-TC; 76376; 76700-TC; 80048; 80053; 80076; 82150; 82962; 83690; 83880; 84484; 85025; 85379; 85610-TC; 85730-TC; 93005; 93306; 94640; 94760; 96374; 96375; 97112-GP; 97116-GP; 97530-GP; 99285; C9113; G0378; J0456; J0696; J1030; J1200; J1650; J1885; J2270; J2405; J2930; J3475; J7050; J7060; J7614; J7626